=== PATIENT | male | born 1990 | race Caucasian/White ===

== ENCOUNTER 2018-02-02 10:44 | Emergency (ER) | payer OTHER ==
[~2018-02-02] VITALS: Ht 177.8 cm; Wt 113.4 kg
[2018-02-02] MEDS ORDERED: QUETIAPINE FUMA25 MG ORAL (10:53)
[2018-02-02 11:11] VITALS: BP 106/76
[2018-02-02 11:14] VITALS: BP 106/76
--- NOTE | 2018-02-02 11:19 | Emergency Room Report ---
History of Present Illness General Chief Complaint: General Complaint Source: Patient Present Illness HPI Patient presents with complaints of abnormal glucose and cholesterol level patient is uncertain called by psychiatrist and was sent in from the [facility] facility for the abnormal results patient himself is asymptomatic denies any dysuria or frequency Denies any chest pain or shortness of breath denies any back or flank pain Patient reports that he has been on seroquel before Patient has paperwork showing total cholesterol of 207 Glucose was reading 107 Allergies: Coded Allergies: No Known Allergies (Unverified , 02/02/18) Patient History Past Medical History: see triage record Pertinent Family History: none Reviewed Nursing Documentation: PMH: Agreed, PSxH: Agreed Review of Systems All Other Systems: negative except mentioned in HPI Physical Exam Vital Signs Date Time Temp Pulse Resp B/P (MAP) Pulse Ox O2 Delivery O2 Flow Rate FiO2 02/02/18 10:50 98.8 90 18 106/76 95 Room Air 98.8 Sp02 EP Interpretation: reviewed, normal General Appearance: well appearing, no apparent distress Head: normocephalic, atraumatic Eyes: bilateral eye PERRL, bilateral eye EOMI ENT: hearing grossly normal, normal pharynx, TMs + canals normal, uvula midline Neck: full range of motion, supple, no meningismus, no bony tend Respiratory: lungs clear, normal breath sounds, no rhonchi, no respiratory distress, no retraction, no accessory muscle use Cardiovascular #1: normal peripheral pulses, regular rate, rhythm, no edema, no gallop, no JVD, no murmur Gastrointestinal: normal bowel sounds, non tender, soft, no mass, no organomegaly, non-distended, no guarding, no hernia, no pulsatile mass, no rebound Genitourinary: no CVA tenderness Musculoskeletal: normal inspection Neurologic: oriented x3, responsive, welfare eligibility worker III-XII nml as tested, motor strength/ tone normal, sensory intact Psychiatric: mood/affect normal Skin: normal color, no rash, warm/dry, palpation normal Lymphatic: normal inspection, no adenopathy Medical Decision Making Diagnostic Impression: Primary Impression: Encounter for generalized patient complaints Additional Impressions: well check MSE ER Course Patient appears well Does not have any psychiatric complaints essentially was sent in for the abnormal blood test Repeat Accu-Chek here is showing glucose of 90 Patient is otherwise a symptomatically I did have discussion regarding the findings there is no further emergency intervention required for the numbers are provided and the blood test and the patient was stable for close follow-up Last Vital Signs Date Time Temp Pulse Resp B/P (MAP) Pulse Ox O2 Delivery O2 Flow Rate FiO2 02/02/18 11:14 98.8 18 106/76 95 Room Air 98.8 02/02/18 10:50 90 Status: unchanged Disposition: HOME, SELF-CARE Condition: Stable Referrals: NON PHYSICIAN (PCP) Patient Instructions: Medical Screening Exam Additional Instructions: Your glucose checked today is 90. Review of your results showing total cholesterol of 207 is also noted. There is no further intervention required through the emergency department. It is recommended to abstain from smoking. And appropriate follow-up on an outpatient basis is recommended MAXIMILIANO DARDEN D.O. Feb 02, 2018 11:19
== END 2018-02-02 11:18 | disposition home or self-care (01) ==
LOC: EMR 11:10
DX: R79.89 Other specified abnormal findings of blood chemistry (principal)
CPT/HCPCS: 82962; 99282